=== PATIENT | male | born 1970 | race Caucasian/White ===

== ENCOUNTER 2016-11-01 14:30 | Emergency (ER) | payer OTHER ==
[2016-11-01 14:53] VITALS: BP 144/87; PULSE 101; TEMP 97.8; BMI 29.6
[2016-11-01] MEDS ORDERED: NAPROXEN 500 MG TABLET (FP) PO ONE (15:20)
--- NOTE | 2016-11-01 15:26 | PDOC ---
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 Pt denies radiation to legs or groin , no saddle anesthesia no urine or bowel dysfunction. Pt is allergic to ampicillin. Pt is ambulatory no acute distress. 11/01/16 15:40 Past History - Past Medical History Allergies/Adverse Reactions: Allergies Allergy/AdvReac Type Severity Reaction Status Date / Time ampicillin [Ampicillin] Allergy Rash Verified 11/01/16 14:50 Home Medications: Ambulatory Orders Cyclobenzaprine HCl [Flexeril -] 10 mg PO TID PRN #21 tablet 11/01/16 Naproxen [Naprosyn -] 500 mg PO BID #20 tablet 11/01/16 Anemia: No Asthma: No Cardiac Disorders: No HTN: No - Surgical History Abdominal Surgery: No - Immunization History Immunization Up to Date: Yes - Psycho/Social/Smoking Cessation Hx Anxiety: No Suicidal Ideation: No Smoking Status: Yes Smoking History: Current every day smoker Have you smoked in the past 12 months: Yes Number of Cigarettes Smoked Daily: 40 Information on smoking cessation initiated: No 'Breaking Loose' booklet given: 01/31/16 Hx Alcohol Use: No Drug/Substance Use Hx: No Substance Use Type: None *Physical Exam - Vital Signs Last Vital Signs Temp Pulse Resp BP Pulse Ox 97.8 F 101 H 20 144/87 97 11/01/16 14:50 11/01/16 14:50 11/01/16 14:50 11/01/16 14:50 11/01/16 14:50 - Physical Exam General Appearance: Yes: Nourished, Appropriately Dressed HEENT: positive: EOMI, BRIANNA, Normal ENT Inspection, TMs Normal, Pharynx Normal Neck: positive: Supple Respiratory/Chest: positive: Lungs Clear, Normal Breath Sounds Cardiovascular: positive: Regular Rhythm, Regular Rate Gastrointestinal/Abdominal: positive: Normal Bowel Sounds, Soft Musculoskeletal: positive: Normal Inspection, Decreased Range of Motion (low back pain soft tissue paraspinal TTP ). 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 11/01/16 15:48 *DC/Admit/Observation/Transfer Diagnosis at time of Disposition: Lumbar back pain Qualifiers: Chronicity: acute Back pain laterality: midline Sciatica presence: without sciatica Qualified Code(s): M54.5 - Low back pain - Discharge Dispostion Disposition: HOME Condition at time of disposition: Good - Prescriptions Prescriptions: Cyclobenzaprine HCl [Flexeril -] 10 mg PO TID PRN #21 tablet PRN Reason: Muscle Spasms Naproxen [Naprosyn -] 500 mg PO BID #20 tablet - Referrals Referrals: Star Morris MD [Staff Physician] - - Patient Instructions Additional Instructions: follow with employee health to be cleared to return to work take naprosyn every 12hrs for pain (Aleve) take flexeril muscle relaxant as needed for any muscle spasm apply ice pack every 2hrs for 20 minutes to lower back for the next 2 days follow with your doctor for any worsening symptoms or with the orthopedist - Post Discharge Activity Work/School Note: Back to Work
[2016-11-01] MEDS ORDERED: NAPROXEN 500 MG TABLET (FP) ONE (15:31)
== END 2016-11-01 16:14 | disposition home or self-care (01) ==
LOC: JERFT 14:30
DX: M54.5 Low back pain (principal); X50.0XXA Overexertion from strenuous movement or load, initial encounter; X50.3XXA Overexertion from repetitive movements, initial encounter; X08.8XXA Exposure to other specified smoke, fire and flames, initial encounter; Y93.89 Activity, other specified; Y92.89 Other specified places as the place of occurrence of the external cause; Y99.0 Civilian activity done for income or pay
CPT/HCPCS: 99281-25

== ENCOUNTER 2019-04-06 17:40 | Emergency (ER) | payer OTHER ==
--- NOTE | 2019-04-06 17:47 | PDOC ---
Rapid Medical Evaluation Time Seen by Provider: 04/06/19 17:46 Medical Evaluation: Allergies Allergy/AdvReac Type Severity Reaction Status Date / Time ampicillin [Ampicillin] Allergy Rash Verified 11/01/16 14:50 04/06/19 17:46 I have performed a brief in-person evaluation of this patient. The patient presents with a chief complaint of: back injury Pertinent physical exam findings:stable and in NAD, non-focal I have ordered the following: provider to determine. pt ambulatory The patient will proceed to the ED for further evaluation.
[2019-04-06 17:50] VITALS: BP 108/76; PULSE 100; TEMP 97.8; BMI 29.6
--- NOTE | 2019-04-06 18:09 | PDOC ---
History of Present Illness - General Chief Complaint: Back Pain Stated Complaint: BACK PAIN Time Seen by Provider: 04/06/19 17:46 History Source: Patient Exam Limitations: No Limitations - History of Present Illness Initial Comments: 04/06/19 18:03 48y M hx of herniated disks presents with back pain. 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 Patient complains of tightness in his lower back he denies any associated numbness, tingling, weakness, radiation of pain, fevers, chills, urinary or bowel incontinence. No other falls or injuries. He currently declines medication states he will take Motrin home. Constitutional - no reported Fever, Chills, Abd/GI: no reported nausea, vomiting, bowel incontinenece : no reported urinary incontinence Musculskelatal - +back pain no reported joint swelling skin - no reported bruising, erythema, rash neurological: no reported numbness, focal weakness, tingling, ataxia, hematologic: no reported easy bruising, easy bleeding GENERAL: The patient is awake, alert, and fully oriented, Nontoxic - in no acute distress. EXTREMITIES: Normal range of motion, no edema. Strength intact and symmetric in bilateral lower extremities, sensation intact and symmetric in lower extremiites. symmetric plantar flexion and extension NEUROLOGICAL: No facial assymetry, Normal speech, normal gait BACK: Mild tenderness palpation in lower b/l paraspinal lumbar spine approx L4-5 , no induration/erythema/fluctuance/stepoffs/bruising appreciaetd. PSYCH: Normal mood, normal affect. SKIN: Warm, Dry, normal turgor, dx: back strain, no red flags suggestive of cord compression or cauda equina Supportive management including NSAIDs Patient declined Flexeril or muscle relaxants Imaging not indicated at this time PMD follow-up return precautions discussed I discussed the physical exam findings, ancillary test results and final diagnoses with the patient. I answered all of the patient's questions. The patient was satisfied with the care received and felt comfortable with the discharge plan and treatment plan. The patient will call their primary care physician within 24 hours to arrange follow-up and will return to the Emergency Department with any new, persistent or worsening symptoms. Past History - Past Medical History Allergies/Adverse Reactions: Allergies Allergy/AdvReac Type Severity Reaction Status Date / Time ampicillin [Ampicillin] Allergy Rash Verified 04/06/19 17:47 Home Medications: Ambulatory Orders Cyclobenzaprine HCl [Flexeril -] 10 mg PO TID PRN #21 tablet 11/01/16 Naproxen [Naprosyn -] 500 mg PO BID #20 tablet 11/01/16 Anemia: No Asthma: No Cardiac Disorders: No HTN: No - Surgical History Abdominal Surgery: No - Immunization History Immunization Up to Date: Yes - Suicide/Smoking/Psychosocial Hx Smoking Status: Yes Smoking History: Never smoked Have you smoked in the past 12 months: Yes Number of Cigarettes Smoked Daily: 40 Information on smoking cessation initiated: No 'Breaking Loose' booklet given: 01/31/16 Hx Alcohol Use: No Drug/Substance Use Hx: No Substance Use Type: None *Physical Exam - Vital Signs Last Vital Signs Temp Pulse Resp BP Pulse Ox 97.8 F 100 H 16 108/76 95 04/06/19 17:47 04/06/19 17:47 04/06/19 17:47 04/06/19 17:47 04/06/19 17:47 *DC/Admit/Observation/Transfer Diagnosis at time of Disposition: Lumbar back pain Qualifiers: Chronicity: acute Back pain laterality: midline Sciatica presence: without sciatica Qualified Code(s): M54.5 - Low back pain - Discharge Dispostion Disposition: HOME Decision to Admit order: No - Referrals Referrals: [facility] [place] [facility] [place] [Provider Group] - Patient Instructions Printed Discharge Instructions: DI for Back Strain or Sprain Additional Instructions: Return to the emergency department immediately with ANY new, persistent or worsening symptoms including numbness, tingling, weakness, fevers or any other concerns. Take ibuprofen (400mg)/tylenol(650mg) every 6 hours for 2 days. Apply heat to your sore muscles. You MUST call and follow up with your doctor in 4-5 days for further evaluation of your symptoms. Your emergency department visit is not complete without a followup with your doctor for reevaluation. Results were discussed with you. Please make sure your doctor reviews the results of your emergency evaluation. - Post Discharge Activity
== END 2019-04-06 18:12 | disposition home or self-care (01) ==
LOC: JERFT 17:40
DX: S39.012A Strain of muscle, fascia and tendon of lower back, initial encounter (principal); X50.0XXA Overexertion from strenuous movement or load, initial encounter; Y93.F2 Activity, caregiving, lifting; Y92.89 Other specified places as the place of occurrence of the external cause; Y99.0 Civilian activity done for income or pay
CPT/HCPCS: 99282-25

== ENCOUNTER 2020-07-11 10:59 | Emergency (ER) | payer OTHER ==
[2020-07-11 11:05] VITALS: BP 144/93; PULSE 101; TEMP 98.8; BMI 32.0
--- NOTE | 2020-07-11 11:19 | PDOC ---
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 Patient states was packing the truck up with a fire hose when he started to develop a soreness to the affected area. Patient states has no previous injury to affected area and has no radiation of pain. No meds taken and decided come to the ER for further evaluation. Is this a multiple visit Asthma Patient?: No Timing/Duration: 1/2 hour Severity: mild Associated Symptoms: reports: other Past History - Travel History Traveled outside of the country in the last 30 days: No Close contact w/someone who was outside of country & ill: No - Medical History Allergies/Adverse Reactions: Allergies Allergy/AdvReac Type Severity Reaction Status Date / Time ampicillin [Ampicillin] Allergy Rash Verified 07/11/20 11:01 Home Medications: Ambulatory Orders Cyclobenzaprine HCl [Flexeril -] 10 mg PO TID PRN #21 tablet 11/01/16 Naproxen [Naprosyn -] 500 mg PO BID #20 tablet 11/01/16 Anemia: No Asthma: No Cardiac Disorders: No COPD: No HTN: No - Surgical History Abdominal Surgery: No - Immunization History Immunization Up to Date: Yes - Psycho-Social/Smoking History Patient Lives Alone: Yes Lives with/in: lives alone Smoking Status: Yes Smoking History: Current every day smoker Have you smoked in the past 12 months: Yes Number of Cigarettes Smoked Daily: 0 Information on smoking cessation initiated: Yes 'Breaking Loose' booklet given: 01/31/16 - Substance Abuse Hx (Audit-C & DAST Scrn) How often the patient has a drink containing alcohol: Never Score: In Men: 4 or > Positive; In Women: 3 or > Positive: 0 Screen Result (Pos requires Nsg. Audit-10AR): Negative In the last yr the pt used illegal drug/Rx for NonMed reason: No Score: Yes response is considered Positive: 0 Screen Result (Positive result requires Nsg. DAST-10): Negative Review of Systems - Review of Systems Able to Perform ROS?: Yes Constitutional: No: Symptoms Reported HEENTM: No: Symptoms Reported Respiratory: No: Symptoms reported Cardiac (ROS): No: Symptoms Reported ABD/GI: No: Symptoms Reported : No: Symptoms Reported Musculoskeletal: Yes: Joint Pain. No: Joint Swelling, Muscle Pain Integumentary: No: Symptoms Reported Neurological: No: Symptoms reported, Tingling, Weakness *Physical Exam - Vital Signs Last Vital Signs Temp Pulse Resp BP Pulse Ox 98.8 F 101 H 18 144/93 100 07/11/20 11:01 07/11/20 11:01 07/11/20 11:01 07/11/20 11:01 07/11/20 11:01 - Physical Exam General Appearance: Yes: Nourished, Appropriately Dressed. No: Apparent Distress Neck: negative: Decreased range of motion Respiratory/Chest: negative: Respiratory Distress Cardiovascular: negative: Edema Gastrointestinal/Abdominal: negative: Distended Extremity: positive: Normal Capillary Refill, Normal Inspection, Normal Range of Motion (But with noted discomfort upon lateral raise), Tender (Mild over the AC joint of right shoulder) Integumentary: positive: Normal Color, Warm, Moist Neurologic: positive: Motor Strength 5/5 (Right hand grasp right shoulder shrug) Medical Decision Making - Medical Decision Making 07/11/20 11:18 Chief complaint: Right shoulder injury after packing a truck with a fire hose. Patient is complaining of soreness. Exam: Patient with full range of motion no visible deformity no skin discoloration but with noted discomfort upon lateral raise with point tenderness over the right AC joint. Plan: Patient offered analgesics but states he wants to go home ice it and rest. Plan discharge Discharge - Discharge Information Problems reviewed: Yes Clinical Impression/Diagnosis: Right shoulder strain Condition: Good Disposition: HOME - Follow up/Referral - Patient Discharge Instructions Patient Printed Discharge Instructions: DI for Shoulder Pain Additional Instructions: Please apply ice to the affected area for the next 2 days as much as you can tolerate. Avoid movements that trigger discomfort. May take Motrin or Tylenol To relieve inflammation and discomfort - Post Discharge Activity
== END 2020-07-11 11:29 | disposition home or self-care (01) ==
LOC: JERFT 10:59
DX: S46.911A Strain of unspecified muscle, fascia and tendon at shoulder and upper arm level, right arm, initial encounter (principal)
CPT/HCPCS: 99283-25

== ENCOUNTER 2020-07-28 18:51 | Emergency (ER) | payer OTHER ==
[2020-07-28 18:59] VITALS: BP 127/88; PULSE 87; TEMP 97.9; BMI 33.2
--- OUTSIDE RECORDS SUMMARY | 2020-07-28 19:02 | XMS ---
:1970 Author Organization [facility] Care Team Providers Name Role Phone RUSLANAN HO Trena VIC Unavailable Unavailable Re-disclosure Warning The records that you are about to access may contain information from federally- assisted alcohol or drug abuse programs. If such information is present, then the following federally mandated warning applies: This information has been disclosed to you from records protected by federal confidentiality rules (42 CFR part 2). The federal rules prohibit you from making any further disclosure of this information unless further disclosure is expressly permitted by the written consent of the person to whom it pertains or as otherwise permitted by 42 CFR part 2. A general authorization for the release of medical or other information is NOT sufficient for this purpose. The Federal rules restrict any use of the information to criminally investigate or prosecute any alcohol or drug abuse patient.The records that you are about to access may contain highly sensitive health information, the redisclosure of which is protected by Article 27-F of the [facility] Public Health law. If you continue you may haveaccess to information: Regarding HIV / AIDS; Provided by facilities licensed or operated by the [facility] Office of Mental Health; or Provided by the [facility] Office for People With Developmental Disabilities. If such information is present, then the following [facility] mandated warning applies: This information has been disclosed to you from confidential records which are protected by state law. State law prohibits you from making any further disclosure of this information without the specific written consent of the person to whom it pertains, or as otherwise permitted by law. Any unauthorized further disclosure in violation of state law may result in a fine or half-way sentence or both. A general authorization for the release of medical or other information is NOT sufficient authorization for further disclosure. Encounters Encounter Providers Location Date Indications Data Source(s ) Outpatient Attender: VIC Romero 02/11/2020 [facility]12[facility] LAdmitter: VIC GARCIAeferrer: VIC Albrecht Outpatient Attender: VIC Romero 01/16/2020 [facility] 11:26:00 [facility] LAdmitter: VIC GARCIAeferrer: VIC Albrecht Insurance Providers Payer name Policy type Policy ID Covered Covered republican's Policy P brady / Coverage republican ID relationship to Teresa Inf ormation type teresa PMA Management [id number] SP [id number] Kevin PMA Management [id number] SP [id number] Kevin SELF PAY SP INSURANCE [employer] FIRE [id number] SP [id number] DEPT. BLUE CROSS O [id number] O VISION RISK O [id number] [employer], [email or web address] PPO [id number] SP [id number] POMCO RISK [id number] SP [id number] MANAGEMENT Problems, Conditions, and Diagnoses Code Display Name Description Problem Type Effective Data Sour ce(s) Dates Z20.828 Contact with and CONTACT W AND Diagnosis 02/11/2020 [facility] (suspected) EXPOSURE TO OTH 11:12:00 AM Medical Center exposure to other VIRAL COMMUNICABLE EDT viral communicable DISEASES diseases Results ID Date Data Source [id number] 02/11/2020 11:20:00 AM EDT [facility] Name Value Range Interpretation Code Description Data Suzanna rce(s) Supporting Document(s ) COV2 [facility] This lab was ordered by SEUN MCKEON and reported by [facility] [place]. ID Date Data Source [id number] 01/16/2020 12:00:00 AM EDT [facility] Name Value Range Interpretation Code Description Data Suzanna rce(s) Supporting Document(s ) 2019-nCoV [facility] RNA XXX CAT+probe- Imp This lab was ordered by [facility] and reported by [employer] [facility] Procedure
--- NOTE | 2020-07-28 19:23 | PDOC ---
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 No radicular symptoms or loss of bowel or bladder function. Past History - Medical History Allergies/Adverse Reactions: Allergies Allergy/AdvReac Type Severity Reaction Status Date / Time ampicillin [Ampicillin] Allergy Rash Verified 07/28/20 18:53 Anemia: No Asthma: No Cardiac Disorders: No COPD: No HTN: No - Surgical History Abdominal Surgery: No - Immunization History Immunization Up to Date: No - Psycho-Social/Smoking History Smoking Status: Yes Smoking History: Never smoked Have you smoked in the past 12 months: Yes Number of Cigarettes Smoked Daily: 0 'Breaking Loose' booklet given: 01/31/16 - Substance Abuse Hx (Audit-C & DAST Scrn) How often the patient has a drink containing alcohol: Never Score: In Men: 4 or > Positive; In Women: 3 or > Positive: 0 Screen Result (Pos requires Nsg. Audit-10AR): Negative In the last yr the pt used illegal drug/Rx for NonMed reason: No Score: Yes response is considered Positive: 0 Screen Result (Positive result requires Nsg. DAST-10): Negative Review of Systems - Review of Systems Musculoskeletal: Yes: Back Pain *Physical Exam - Vital Signs Last Vital Signs Temp Pulse Resp BP Pulse Ox 97.9 F 87 20 127/88 100 07/28/20 18:54 07/28/20 18:54 07/28/20 18:54 07/28/20 18:54 07/28/20 18:54 - Physical Exam 07/28/20 19:22 Lumbar spine skin color temperature normal range of motion is slightly decreased. No midline tenderness. Moderate bilateral paralumbar musculature spasm and tenderness 5 out of 5 strength bilateral lower extremities without gross sensorimotor deficits thighs and calves are soft and nontender neurovascular intact Medical Decision Making - Medical Decision Making 07/28/20 19:22 No gross sensorimotor deficits on examination. Patient refused x-ray. Patient want to self medicate at home with Aleve and follow-up with his primary care physician no emergent intervention required at this time I do not have a problem with this plan I have reviewed the pathophysiology with the patient. They are in agreement with the treatment plan all questions were answered to their satisfaction. Understanding for follow-up without fail was also conveyed to the patient. Again they are in agreement. Discharge - Discharge Information Problems reviewed: Yes Clinical Impression/Diagnosis: Lumbar strain Condition: Stable Disposition: HOME - Admission No - Follow up/Referral Referrals: Ian Mendenhall MD, [facility] [Staff Physician] - - Patient Discharge Instructions Additional Instructions: Tylenol Motrin as directed for pain and return to the emergency room should you have further issues. Without fail follow-up with neurosurgery in 1 to 2 days for further evaluation and treatment options. - Post Discharge Activity
== END 2020-07-28 20:05 | disposition home or self-care (01) ==
LOC: JERFT 18:51
DX: S39.012A Strain of muscle, fascia and tendon of lower back, initial encounter (principal)
CPT/HCPCS: 99282-25

== ENCOUNTER 2021-04-17 21:15 | Emergency (ER) | payer OTHER ==
[2021-04-17 21:21] VITALS: BP 126/78; PULSE 109; TEMP 98; BMI 34.4
== END 2021-04-17 22:15 | disposition home or self-care (01) ==
LOC: JERFT 21:15
DX: S93.491A Sprain of other ligament of right ankle, initial encounter (principal)
CPT/HCPCS: 99281-25

== ENCOUNTER 2022-01-12 09:45 | Emergency (ER) | payer OTHER ==
[2022-01-12 10:11] VITALS: BP 115/85; PULSE 92; TEMP 98.5; BMI 33.5
== END 2022-01-12 12:04 | disposition home or self-care (01) ==
LOC: JERFT 09:45
DX: S89.92XA Unspecified injury of left lower leg, initial encounter (principal); M25.462 Effusion, left knee; X50.0XXA Overexertion from strenuous movement or load, initial encounter
CPT/HCPCS: 99281-25

== ENCOUNTER 2023-01-20 22:36 | Emergency (ER) | payer OTHER ==
[2023-01-20 22:40] VITALS: BP 117/80; PULSE 100; RESP 18; TEMP 97.6; BMI 33.5
== END 2023-01-21 00:32 | disposition home or self-care (01) ==
LOC: JER 22:36
DX: S93.401A Sprain of unspecified ligament of right ankle, initial encounter (principal); X50.1XXA Overexertion from prolonged static or awkward postures, initial encounter; Y93.31 Activity, mountain climbing, rock climbing and wall climbing; Y99.0 Civilian activity done for income or pay
CPT/HCPCS: 99282-25

== ENCOUNTER 2024-03-05 15:39 | Emergency (ER) | payer OTHER ==
[2024-03-05 15:55] VITALS: BP 133/75; PULSE 90; RESP 18; TEMP 98; BMI 34.7
== END 2024-03-05 17:13 | disposition home or self-care (01) ==
LOC: JER 15:39 → JERFT 15:39
DX: Z20.3 Contact with and (suspected) exposure to rabies (principal)
CPT/HCPCS: 99282-25